=== PATIENT | female | born 1965 | race Caucasian/White ===

== ENCOUNTER → 2018-01-29 08:09 | Outpatient (CLI) | payer BC | END | disposition home or self-care (01) | LOC: D.US 08:00 | DX: R10.11 Right upper quadrant pain (principal) ==

== ENCOUNTER 2018-04-02 08:50 | Day surgery (SDC) | payer BC ==
[2018-04-01 09:17] LABS: HEMATOCRIT 41.5 % (36.0-48.0); HEMOGLOBIN 13.8 g/dL (12-16); MCHC 33.3 g/dL (31.0-37.0); MCV 84.2 fL (80.0-100.0); MEAN PLATELET VOLUME 10.2 fL (7.4-10.4); RBC 4.93 10x6/uL (4.00-5.40); RDW 13.3 % (11.5-14.5); WBC 7.1 10x3/uL (4.8-10.8)
[~2018-04-02] VITALS: Ht 264.2 cm; Wt 95.3 kg
--- NOTE | ~2018-04-02 | OP ---
PATIENT NAME: TONY CURRAN MEDICAL RECORD: [id number] :63 LOCATION:[facility] ADMISSION DATE: SURGEON: MEMO SANTAMARIA DO DATE OF OPERATION: 04/02/2018 PROCEDURE PERFORMED: Right endoscopic carpal tunnel release. PREOPERATIVE DIAGNOSIS: Severe carpal tunnel syndrome of the right median nerve. POSTOPERATIVE DIAGNOSIS: Severe carpal tunnel syndrome of the right median nerve. INDICATIONS: Ms. Curran is a 53-year-old female who has been dealing with right hand numbness and weakness, dropping things for quite some time and her hands go numb, wake her up at night, with pain anytime she is driving or talking on the phone. She had a nerve conduction study done, which revealed severe carpal tunnel on the right and the left. She chose to do the right first and then it was discussed with her the risks and benefits of the procedure and she was okay with the risks including damage to the median nerve, bleeding, infection, need for further surgery, and not getting the sensation back to the severity of her carpal tunnel syndrome. She consented to the procedure. SURGEON: Memo Santamaria DO DESCRIPTION OF PROCEDURE: The patient was taken to the operative suite, laid in the supine position, given general anesthetic and the right upper extremity was prepped and draped in sterile fashion. She was given 2 grams of Ancef preoperatively. The time-out was then performed and everyone was in agreement with correct side, site, patient, and procedure. The procedure then began marking the incision over the wrist crease about a centimeter in length and the right upper extremity was then exsanguinated with Esmarch and the tourniquet was inflated to 250 mmHg, it was up for 11 minutes throughout the procedure. Once the tourniquet was inflated, the incision began with 15 blade scalpel and blunt dissection made with Ragnell down to the carpal tunnel itself. This was opened up and the forearm fascia going proximally was then released with a pickup and scissors under direct loupe visualization. Then, the dilators were put into the carpal tunnel itself and then the Segway sheath protecting the median nerve, the nerve was nowhere near the sheath and that was protected the whole time. The transverse carpal ligament was then probed and rasped ensuring that it was just transverse carpal ligament and the blade was then entered and released the transverse carpal ligament until fat herniated into the carpal tunnel itself. Sheath was then removed and the more proximal part of the transcarpal ligament was resected visually at the incision site with a pickup and scissors. Then, a larger end of the Ragnell was used to view the carpal tunnel under direct loupe visualization and it was seen to be released fully. No fibers were left. The tourniquet was let down at 11 minutes. A 0.5% Marcaine with epinephrine was then injected around the site, 10 mL of it and the tourniquet had been let down. All bleeding was stopped and the incision was closed with 2 stitches of 4-0 Monocryl in inverted interrupted fashion. Steri-Strips were then placed over that. Adaptic, 4 x 4's, Kerlix, and Coban was lightly wrapped on the wrist. The patient was awakened and taken to recovery in stable condition. BLOOD LOSS: Minimal. OPERATIVE REPORT [id number] MARYYosiTONY COMPLICATIONS: None. TRANSINT:[id number] Voice Confirmation ID: [id number] DOCUMENT ID: [id number] MEMO SANTAMARIA DO at 1404 CC: [id number] DICTATION DATE: 04/02/18 1257 STONE OPERATOR: 04/02/18 1318 [facility] [address] [place] [address]
[~2018-04-02 08:50] MED LIST: BUPROPION XL150 MG PO; COZAAR100 MG PO; LEXAPRO20 MG PO; NORVASC2.5 MG PO
[2018-04-02] MEDS ORDERED: ATARAX 25 MG TA25 MG PO (09:58)
[2018-04-02 10:05] VITALS: BP 140/84; Ht 264.2 cm; Wt 95.3 kg
[2018-04-02 10:23] LABS: HCG URINE NEGATIVE (NEGATIVE)
[2018-04-02] MEDS ORDERED: DURICEF500 MG PO (12:59)
[2018-04-02] MEDS ORDERED: PERCOCET 5-3251 TAB PO (12:59)
== END 2018-04-02 14:40 | disposition home or self-care (01) ==
LOC: D.OPS 08:50 → D.PAN 09:55 → D.OPS 10:15
PROVIDERS: Anesthesiology; Orthopaedic Surgery
DX: G56.01 Carpal tunnel syndrome, right upper limb (principal); Z01.812 Encounter for preprocedural laboratory examination

== ENCOUNTER 2018-05-07 07:08 | Day surgery (SDC) | payer BC ==
[2018-05-07 07:45] LABS: HEMATOCRIT 40.6 % (36.0-48.0); HEMOGLOBIN 13.6 g/dL (12-16); MCHC 33.5 g/dL (31.0-37.0); MCV 83.5 fL (80.0-100.0); MEAN PLATELET VOLUME 10.8 fL (7.4-10.4); RBC 4.86 10x6/uL (4.00-5.40); RDW 12.8 % (11.5-14.5); WBC 5.5 10x3/uL (4.8-10.8)
[2018-05-07 08:12] LABS: HCG URINE NEGATIVE (NEGATIVE)
== END 2018-05-07 12:30 | disposition home or self-care (01) ==
LOC: D.OPS 07:08
PROVIDERS: Anesthesiology; Orthopaedic Surgery
DX: G56.02 Carpal tunnel syndrome, left upper limb (principal); Z01.812 Encounter for preprocedural laboratory examination

== ENCOUNTER → 2019-10-27 13:09 | Outpatient (CLI) | payer BC ==
[2018-05-07 07:51] VITALS: BMI 36.1
[~2019-10-27 13:09] MED LIST changes: +ATARAX 25 MG TA25 MG PO; +DURICEF500 MG PO; +PERCOCET 5-3251 TAB PO
== END | disposition home or self-care (01) ==
LOC: D.MRI 13:09
PROVIDERS: ATTEND Orthopaedic Surgery
DX: S83.281A Other tear of lateral meniscus, current injury, right knee, initial encounter (principal)